=== PATIENT | female | born 1945 | race Caucasian/White ===

== ENCOUNTER 2023-10-30 08:16 | Emergency (ER) | payer MEDICARE, OTHER, SELFPAY ==
[2023-10-30 08:18] VITALS: BP 144/89
[2023-10-30 08:35] VITALS: BP 129/82; BMI 25.7
--- NOTE | 2023-10-30 08:57 | ED.GENMED ---
History of Present Illness
General
Chief Complaint: Heart Rate Problem
Source: patient
Exam Limitations: none
Time Seen by Provider: 10/30/23 08:23
Nursing documentation reviewed up to this point in time: agreed with
History of Present Illness
History of Present Illness:
78-year-old female past medical history of SVT anxiety presenting to the emergency department today with concerns of palpitations this morning and heart rate of 180s she took metoprolol and propranolol with improving symptoms. Still some mild
lightheadedness but no additional symptoms otherwise. No chest pain at any point no shortness of breath.
Past History
Past History
ED Past Medical History: Arrthythmia (atrial tachycardia) and Other (orthostatic tremor)
ED Past Surgical History: Orthopedic (R elbow fx repair)
Social History
Tobacco: Non-smoker
Alcohol: Occasional
Drug: None
Living: with family
Employment: Retired
Family History
Family History: Other (reviewed and non-contributory)
Review of Systems
Review of Systems
Allergies reviewed?: Yes
All Other Systems: ROS reviewed and negative except as documented in HPI and ROS
Phy Exam
Physical Exam
Physical Exam:
GENERAL: Alert , in no apparent distress
EYE: pupils equal and reactive
NECK: Supple, no significant adenopathy.
ENT: o/p clr, mmm.
CARDIAC: Regular rate and rhythm .
LUNGS: Clear breath sounds bilaterally, no acute respiratory distress, no wheezes/rales/rhonchi
ABDOMEN: Soft, without focal tenderness, no r/g, no cvat
NEUROLOGICAL: Alert and oriented, no focal neuro deficits
SKIN: Warm and dry, skin intact.
MUSCULOSKELETAL: No edema, well perfused.
PSYCH: Normal and appropriate interaction.
Course
Orders/Labs/Results
Orders:
Orders
10/30/23 08:21
ECG [Electrocardiogram (*1)] Urgent
Reason for Study: Palpitations
EKG- Treatment ONCE
10/30/23 08:39
Urinalysis Reflex To Culture Urgent
10/30/23 08:45
CBC/With Diff [Complete Blood Count/With Diff] Urgent
CMP [Comprehensive Metabolic Panel] Urgent
Free T4 Urgent
Magnesium Urgent
TSH Reflex To Free T4 Urgent
10/30/23 08:57
0.9% Sodium Chloride 500 ml [Nss] 500 ml IV BOLUS
Abnormal Lab Results
10/30/23
08:45
RBC 4.10 L 10^6/uL
(4.20-5.40)
MCH 32.4 H pg
(27.0-31.0)
MPV 10.7 H fL
(7.4-10.4)
Glucose 117 H mg/dl
(70-99)
TSH (Reflex) 5.88 H uIU/ml
(0.47-4.68)
10/30/23 08:45
10/30/23 08:45
Vital Signs
Initial and Last Documented VS:
Initial Vital Signs
Temp Pulse Resp BP Pulse Ox
97.8 F 86 20 144/89 96
10/30/23 08:18 10/30/23 08:18 10/30/23 08:18 10/30/23 08:18 10/30/23 08:18
Last Documented Vital Signs
Temp Pulse Resp BP Pulse Ox
97.8 F 87 13 129/82 98
10/30/23 08:18 10/30/23 08:35 10/30/23 08:35 10/30/23 08:35 10/30/23 08:35
MDM/Problems Addressed
MDM/Problems Addressed:
78-year-old female presenting to the emergency department today with concerns of palpitations and elevated heart rate this morning she claims that her heart rate was 180 on her Apple Watch for roughly 10 to 15 minutes she took metoprolol and
propranolol and it seemed to resolve en route to the ER. Denies chest pain shortness of breath or additional concerns at this point feels somewhat lightheaded but otherwise no additional symptoms otherwise. Normal heart lung examination here.
Labs unremarkable. EKG normal. No events on the monitor throughout multiple hour ER stay patient able to stand up walk to the bathroom without difficulty. No emergent findings throughout assessment here is valid for cardiology follow-up return
precautions given.
*Critical Care Note
Total Time (30-74mins, 75-104mins- exclusive of procedures): Not Applicable
ED Attending Note
-
Portions of this chart may have been created with voice recognition software.� Occasional wrong word or��sound alike� substitutions may have occurred due to the inherent limitations of voice recognition software.
Discharge Plan
Departure
Patient Disposition: Home (Routine Discharge)
Date of Disposition: 10/30/23
Time of Disposition: 10:07
Patient with high blood pressure during this ER visit?: No
Condition: Good
Covid-19: Not Applicable
Discharge Problem:
Heart palpitations
Instructions: Palpitations (DC)
Prescriptions:
No Action
latanoprost 0.005 % drops
1 drp BOTH EYES HS
gabapentin 300 mg capsule
300 mg PO Q12H
timolol maleate 0.5 % drops
1 drp BOTH EYES Q12H
cyanocobalamin (vitamin B-12) 1,000 mcg Tablet
500 mcg PO DAILY
cholecalciferol (vitamin D3) [Vitamin D3] 125 mcg (5,000 unit) Tablet
125 mcg PO DAILY
Referrals:
Emmett Sanchez MD [Active] - Follow up in 10 days
Missy Nguyen MD [Family Provider] -
Activity Restrictions/Additional Instructions:
You came to the emergency department today with concerns of an elevated heart rate prior to arrival. Here you had a reassuring assessment. Your symptoms could have been from SVT. It is important follow-up closely with cardiology. Return to the
emergency department any worsening, new or concerning symptoms.
Discharge Date and Time
Print Language: LATVIAN
[2023-10-30 09:00] VITALS: BP 129/79
[2023-10-30 09:00] LABS: % Basophils 0.6 % (0-2); % Eosinophils 1.6 % (0-6); % Immature Granulocytes 0.3 % (0-0.5); % Monocytes 6.4 % (1.7-9.3); % Neutrophils 57.1 % (42.2-75.2); Absolute Eosinophils 0.1 10^3/uL (0-0.7); Absolute Lymphocytes 2.4 10^3/uL (1.2-3.4); Absolute Monocytes 0.5 10^3/uL (0.1-0.6); Hemoglobin 13.3 g/dL (12.0-16.0); Mean Corp Hgb Conc. 34.1 g/dL (33.0-37.0); Mean Corpuscular Hgb 32.4 pg (27.0-31.0); Mean Corpuscular Volume 95.1 fL (81.0-99.0); Mean Platelet Volume 10.7 fL (7.4-10.4); Nucleated Red Blood Cells % 0 %; Platelet Count 266 10^3/uL (130-400); Red Cell Dist. Width 12.3 % (11.5-14.5)
[2023-10-30 09:10] LABS: ALT (SGPT) 19 U/L (0-35); AST (SGOT) 30 U/L (14-36); Albumin 4.2 g/dl (3.5-5.0); Alkaline Phosphatase 85 U/L (38-126); Blood Urea Nitrogen 13 mg/dl (7-17); Calcium 9.5 mg/dl (8.4-10.2); Carbon Dioxide 25 mmol/L (22-30); Chloride 102 mmol/L (98-107); Estimated Creatinine Clearance 53 ml/min; Glucose 117 mg/dl (70-99); Magnesium 1.7 mg/dl (1.6-2.3); Potassium 4.4 mmol/L (3.5-5.1); Sodium 140 mmol/L (135-145); Total Bilirubin 0.6 mg/dl (0.2-1.3); Total Protein 7.2 g/dl (6.3-8.2); eGFR > 60.00
[2023-10-30] MEDS: NSS 500 IV (09:15)
--- NOTE | 2023-10-30 09:42 | PHANOTE ---
Medication reconciliation completed with patient/daughter. Patient informed RP that she took one propranolol and one metoprolol doses from old prescriptions [doses unknown] this AM in an attempt to manage symptoms.
[2023-10-30 09:45] LABS: TSH Reflex To Free T4 5.88 uIU/ml (0.47-4.68)
[2023-10-30 10:18] VITALS: BP 113/66
[2023-10-30 10:38] VITALS: BP 113/66
[2023-10-30 10:42] LABS: Free T4 1.04 ng/dl (0.78-2.19)
== END 2023-10-30 10:47 | disposition home or self-care (01) ==
LOC: EMR 08:16
PROVIDERS: Physician Assistant; EMERGENCY PHYSICIAN Student in an Organized Health Care Education/Training Program; FAMILY PHYSICIAN Family Medicine
DX: R00.2 Palpitations (principal); I47.10 Supraventricular tachycardia, unspecified; F41.9 Anxiety disorder, unspecified; Z86.79 Personal history of other diseases of the circulatory system
CPT/HCPCS: 99283; 96360; 80053; 83735; 84439; 84443; 85025; 93005